=== PATIENT | female | born 1960 | race Caucasian/White ===

== ENCOUNTER 2020-04-10 07:37 | Emergency (ER) | payer MEDICARE, MEDICAID ==
[~2020-04-10] VITALS: Ht 157.5 cm; Wt 54.7 kg
[2020-04-10] MEDS ORDERED: IBUPROFEN 200 MG TABLET PO ONE (08:30)
[2020-04-10] MEDS ORDERED: IBUPROFEN 200 MG TABLET ONE (08:34)
--- NOTE | 2020-04-10 08:35 | NUR ---
CONTACT WITH PT. 59 YR OLD FEMALE HERE WITH C/O "I HAVE AN ABCESS ON MY ARM (RIGHT) MY HIP (LEFT) AND THE BACK OF MY KNEE (LEFT)" HAS BEEN FOR A COUPLE OF WEEKS. HAS NOT BEEN SEEN FOR THEM PRIOR TO TODAY.
[2020-04-10] MEDS ORDERED: GABA600T7 PO (08:40)
--- NOTE | 2020-04-10 08:44 | NUR ---
PT MEDICATED FOR 7/10 PAIN ORDERED. PT UPDATED ON POC. IE: US ORDERED. PT PROVIDED WITH WARM BLANKET. NO OTHER NEEDS EXPRESSED AT THIS TIME.
--- NOTE | 2020-04-10 09:58 | NUR ---
U/S COMPLETED. REPORT TO DONNELL SEVERINO
--- NOTE | 2020-04-10 09:58 | NUR ---
PT REPORT FROM MERE PENA. PT CARE TO BE ASSUMED. U/S COMPLETED.
--- NOTE | 2020-04-10 10:14 | NUR ---
PT SITTING ON CHAIR IN ROOM, SPEAKING W/ JUWAN MCGUIRE. PER DENNY PT TO BE DC'D. PT A&OX4, RESP EVEN & UNLABORED, SPEECH CLEAR.
[2020-04-10 10:17] VITALS: BP 120/51
== END 2020-04-10 10:42 | disposition home or self-care (01) ==
LOC: ED 08:46
DX: L02.413 Cutaneous abscess of right upper limb (principal); L02.416 Cutaneous abscess of left lower limb
CPT/HCPCS: 99284

== ENCOUNTER 2020-05-23 18:17 | Emergency (ER) | payer MEDICARE, MEDICAID ==
[~2020-05-23] VITALS: Ht 157.5 cm; Wt 54.2 kg
[~2020-05-23 18:17] MED LIST: GABA600T7 PO
[2020-05-23 18:30] VITALS: BP 124/44
--- NOTE | 2020-05-23 18:50 | NUR ---
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
--- NOTE | 2020-05-23 18:59 | NUR ---
COMPLAINTS OF GREEN DISCHARGE FOR 3 DAYS AND LEFT SIDED ABD CRAMP. PT STATES SHE HAS HAD TRICHOMONIASIS IN PAST. DENIES ISSUES WITH URINARY OUTPUT.
--- NOTE | 2020-05-23 19:24 | NUR ---
UA COLLECTED AND WALKED TO LAB
[2020-05-23 19:37] LABS: HCG UR SG 1.007 (1.003-1.030); MICROSCOPIC AUTO
[2020-05-23] MEDS ORDERED: AZITHROMYCIN 500 MG TABLET ONE (20:19)
[2020-05-23] MEDS ORDERED: CEFTRIAXONE 250 MG ONE (20:20)
[2020-05-23] MEDS ORDERED: AZITHROMYCIN 500 MG TABLET PO ONE (20:30)
[2020-05-23] MEDS ORDERED: CEFTRIAXONE 250 MG IM ONE (20:30)
[2020-05-23 20:34] LABS: WET PREP WBCS MODERATE (FEW)
[2020-05-23 20:55] LABS: CLUE CELLS PRESENT (NONE SEEN)
--- NOTE | 2020-05-23 21:21 | NUR ---
Patient given discharge instructions and they have confirmed that they understand the instructions. Patient ambulatory with steady gait.
== END 2020-05-23 21:22 | disposition home or self-care (01) ==
LOC: ED 18:55
DX: N76.0 Acute vaginitis (principal); A64 Unspecified sexually transmitted disease
CPT/HCPCS: 81001; 81025; 87086; 87210; 87491; 87591; 87808; 96372; 99283; J0696